=== PATIENT | female | born 1990 | race American Indian/Alaskan Native ===

== ENCOUNTER 2018-11-13 23:34 | Outpatient (CLI) | payer OTHER ==
[2018-11-14] MEDS ORDERED: LACTATED RINGERS 1,000 ML ONE (01:10)
[2018-11-14] MEDS ORDERED: LACTATED RINGERS 1,000 ML IV SCH (02:00)
[2018-11-14] MEDS ORDERED: MORPHINE IV ONE (02:52)
[2018-11-14] MEDS ORDERED: PHENERGAN PO ONE (02:54)
[2018-11-14] MEDS ORDERED: LACTATED RINGERS 0 ML ONE (05:03)
[2018-11-14 05:10] VITALS: BP 107/59
[2018-11-14] MEDS ORDERED: VISTARIL PO ONE ×2 (07:21→08:00)
== END 2018-11-14 08:00 | disposition home or self-care (01) ==
LOC: TRG 23:34
PROVIDERS: ATTEND Obstetrics & Gynecology
DX: O47.03 False labor before 37 completed weeks of gestation, third trimester (principal); O62.4 Hypertonic, incoordinate, and prolonged uterine contractions; Z3A.39 39 weeks gestation of pregnancy
CPT/HCPCS: 59025; 96374; J2270; 96360; 96372; J7120; Q0169; Q0177

== ENCOUNTER 2018-11-14 14:35 | Inpatient (IN) | payer OTHER ==
[2018-11-14] MEDS ORDERED: PITOCin/NS 20 UNIT/1000ML DRIP 20 UNITS/1,000 ML BAG IV SCH (15:00)
[2018-11-14] MEDS ORDERED: SUBLIMAZE IV PRN (15:00)
[2018-11-14] MEDS ORDERED: LACTATED RINGERS 1,000 ML IV SCH (15:00)
[2018-11-14 15:54] LABS: Hematocrit 39.8 % (30.3-42.9); Hemoglobin 13.6 gm/dl (10.1-14.3); Mean Corpuscular HGB Conc 34 % (30-34); Mean Corpuscular Volume 90 fl (79-97); Platelet Count 188 K/mm3 (140-440); Red Cell Distribution Width 13.3 % (13.2-15.2)
--- NOTE | 2018-11-14 17:13 | History and Physical Report ---
History of Present Illness Date of examination: 11/14/18 Date of admission: 11/14/18 14:52 Chief complaint: contractions History of present illness: 27y/o @ 39+3 weeks presents in active labor with advanced cervical dilation of 7cm. The patient's course was complicated by suspected IUGR that resolved. She denies leakage of fluid. GBS status is unknown. Past History Past Medical History: no pertinent history Past Surgical History: no surgical history Social history: - Obstetrical History Expected Date of Delivery: 11/18/18 Actual Gestation: 39 Week(s) 3 Day(s) : 2 Para: 1 Hx # Term Pregnancies: 1 Number of Pregnancies: 0 Spontaneous Abortions: 0 Induced : 0 Number of Living Children: 1 Medications and Allergies Allergies Allergy/AdvReac Type Severity Reaction Status Date / Time soy AdvReac Itching Verified 10/06/18 09:43 Home Medications Medication Instructions Recorded Confirmed Last Taken Type Pnv,Calcium 72/Iron/Folic Acid 1 tab PO QDAY 11/14/18 11/14/18 11/13/18 History [Preplus Ca-Fe 27 mg-FA 1 mg Tb] Active Meds: Active Medications Fentanyl (Sublimaze) 100 mcg IV Q2H PRN PRN Reason: Labor Pain Last Admin: 11/14/18 15:14 Dose: 100 mcg Documented by: Lactated Ringer's (Lactated Ringers) 1,000 mls @ 125 mls/hr IV DIRECT JO Last Admin: 11/14/18 15:14 Dose: 125 mls/hr Documented by: Oxytocin/Sodium Chloride (Pitocin/Ns 20 Unit/1000ml Drip) 20 units in 1,000 mls @ 0 mls/hr IV DIRECT JO Review of Systems All systems: negative Genitourinary: contractions, no leakage of fluid - Vital Signs Vital signs: Vital Signs Temp Resp 98.1 F 18 11/14/18 15:01 11/14/18 15:01 Temp Pulse Resp BP Pulse Ox 98.1 F 96 H 18 114/68 11/14/18 15:01 11/14/18 17:08 11/14/18 15:01 11/14/18 17:08 - Physical Exam Breasts: Positive: deferred Cardiovascular: Regular rate Lungs: Positive: Clear to auscultation Abdomen: Positive: normal appearance Results Result Diagrams: 11/14/18 15:36 Abnormal lab results 11/14/18 Range/Units 15:36 WBC 21.6 H (4.5-11.0) K/mm3 All other labs normal. Assessment and Plan - Patient Problems (1) Active labor at term Current Visit: Yes Status: Acute Plan to address problem: admit to L&D
[2018-11-14] MEDS ORDERED: DULCOLAX PR PRN (17:14)
[2018-11-14] MEDS ORDERED: ZOFRAN IV PRN (17:14)
[2018-11-14] MEDS ORDERED: TUCKS PAD TP PRN (17:14)
[2018-11-14] MEDS ORDERED: BENADRYL PO PRN (17:14)
[2018-11-14] MEDS ORDERED: TYLENOL PO PRN (17:14)
[2018-11-14] MEDS ORDERED: PHENERGAN PO PRN (17:14)
[2018-11-14] MEDS ORDERED: MILK OF MAGNESIA PO PRN (17:14)
[2018-11-14] MEDS ORDERED: LANSINOH TP PRN (17:14)
[2018-11-14] MEDS ORDERED: PHENERGAN PR PRN (17:14)
--- NOTE | 2018-11-14 17:14 | Procedure Note ---
OB Delivery Note - Delivery Date of Delivery: 11/14/18 Surgeon: ALESHA BEY Estimated blood loss: other (400ml) - Vaginal Delivery presentation: vertex Delivery position: OA Intrapartum events: precipitous labor- <3hr Delivery monitor: external FHT Route of delivery: Delivery placenta: spontaneous Delivery cord: 3 umbilical vessels Episiotomy: none Delivery laceration: none Anesthesia: none Delivery comments: Patient had a precipitous delivery of a liveborn male infant with apgars of 8/9 and weight of 6lbs 14oz. The delivery was attended by the nurse who placed the infant on the patient's chest while still attached to the placenta. Patient received delayed cord clamping. The placenta was delivered by the physician spontaneously intact with a 3VC. No lacerations were noted. The patient refused the use of pitocin. EBL 400ml. - A at 1 minute: 8 at 5 minutes: 9 Infant Gender: Male (weight 6lbs 14oz)
[2018-11-14] MEDS ORDERED: SODIUM CHLORIDE FLUSH SYRINGE 10 ML IV NR (18:00)
[2018-11-14] MEDS: IBUPROFEN PO SCH (19:46)
[2018-11-15] MEDS: IBUPROFEN PO SCH ×4 (00:45→18:15)
[2018-11-15] MEDS: NORCO 5/325 PO PRN (03:53)
[2018-11-15 06:41] LABS: Hematocrit 36.4 % (30.3-42.9); Hemoglobin 12.1 gm/dl (10.1-14.3)
--- NOTE | 2018-11-15 07:48 | Progress Note ---
Assessment and Plan A/P PPD1 s/p routine Pospartum care consider d/c home tomorrow Subjective - Subjective Date of service: 11/15/18 Principal diagnosis: s/p Patient reports: appetite normal, voiding normally, pain well controlled, flatus, ambulating normally : doing well Objective - Vital Signs Latest vital signs: Vital Signs Temp Pulse Resp BP BP Pulse Ox 11/15/18 05:26 97.9 F 86 18 109/64 96 11/15/18 03:53 18 11/14/18 23:30 98.5 F 95 H 18 113/70 97 11/14/18 19:46 18 11/14/18 18:40 98.6 F 100 H 18 116/77 97 11/14/18 17:54 98.4 F 18 11/14/18 17:38 96 H 118/65 11/14/18 17:26 87 80 L 11/14/18 17:25 87 98 11/14/18 17:23 89 118/67 11/14/18 17:16 98.7 F 18 11/14/18 17:08 96 H 114/68 11/14/18 17:01 100 H 118/59 11/14/18 15:11 112 H 132/85 11/14/18 15:01 98.1 F 18 Intake and Output 11/14/18 11/14/18 11/15/18 15:59 23:59 07:59 Intake Total 360 Output Total 1300 Balance -1300 360 Intake: Intake, Free Water 360 Output: Urine 1300 Void 1300 Other: Total, Output Amount 900 Weight 81.647 kg Estimated Blood Loss 400 - Exam Breasts: Present: normal Cardiovascular: Present: Regular rate, Normal S1 Lungs: Present: Clear to auscultation, Normal air movement Abdomen: Present: normal appearance, soft, normal bowel sounds. Absent: distention, tenderness, guarding Uterus: Present: normal, firm. Absent: fundal height below umbilicus Extremities: Present: normal Deep Tendon Reflex Grade: Normal +2 Incision: Present: normal - Labs Labs: Abnormal lab results 11/14/18 Range/Units 15:36 WBC 21.6 H (4.5-11.0) K/mm3
[2018-11-16] MEDS: IBUPROFEN PO SCH ×4 (00:25→17:41)
--- NOTE | 2018-11-16 03:21 | Discharge Summary ---
Providers - Providers Date of Admission: 11/14/18 14:52 Date of discharge: 11/16/18 Attending physician: ALESHA BEY Primary care physician: ALESHA BEY Hospitalization Reason for admission: active labor Delivery: Episiotomy: none Laceration: none Incision: normal Other procedures: none Discharge diagnosis: IUP at term delivered baby: male Hospital course: Patient came in active labor. Delivered vaginally and discharged with f/u PPD 2. f/u in 4 weeks Condition at discharge: Good Disposition: DC-01 TO HOME OR SELFCARE Plan - Provider Discharge Summary Activity: routine, no sex for 6 weeks, no strenuous exercise Diet: routine Instructions: routine Additional instructions: [] Smoking cessation referral if applicable(refer to patient education folder for contact #) [] Refer to [facility] Booklet Call your doctor immediately for: * Fever > 100.5 * Heavy vaginal bleeding ( >1 pad per hour) * Severe persistent headache * Shortness of breath * Reddened, hot, painful area to leg or breast * Drainage or odor from incision. * Keep incision clean and dry at all times and follow doctor's instructions regarding bathing/showering - Follow up plan Follow up: ALESHA BEY MD [Primary Care Provider] - 12/14/18
[2018-11-16] MEDS: NORCO 5/325 PO PRN ×2 (06:28→17:42)
[2018-11-16 17:40] VITALS: BP 117/74
== END 2018-11-16 18:55 | disposition home or self-care (01) | DRG 807 ==
LOC: TRG 14:35 → LD 14:52 → OB 18:48
PROVIDERS: ADMIT Obstetrics & Gynecology; ATTEND Obstetrics & Gynecology
PROC: 10E0XZZ Delivery of Products of Conception, External Approach (ICD-10-PCS; principal; 2018-11-14)
DX: O62.3 Precipitate labor (principal); Z37.0 Single live birth; Z3A.39 39 weeks gestation of pregnancy; Z91.018 Allergy to other foods
CPT/HCPCS: 36415; 85014; 85018; 85027; 86592; 86850; 86900; 86901; G0378; A6250; J2590; J3010; J7120

== ENCOUNTER 2019-09-20 09:33 | Emergency (ER) | payer OTHER, MEDICAID ==
[2019-09-20 09:53] VITALS: BP 103/73
[2019-09-20] MEDS ORDERED: IBUPROFEN 800 MG TAB PO ONE (10:22)
--- NOTE | 2019-09-20 11:07 | Emergency Department Report ---
ED Lower Extremity HPI - General Chief Complaint: Extremity Injury, Lower Stated Complaint: LT PAIN Time Seen by Provider: 09/20/19 10:22 Source: patient Mode of arrival: Ambulatory Limitations: No Limitations - History of Present Illness Initial Comments: This is a 28-year-old female nontoxic, well nourished in appearance, no acute signs of distress presents to the ED with c/o of left foot pain 1 day. Patient stated that she has been walking a lot. Patient is uncertain of any trauma or injuries. Patient denies any numbness, tingling, fever, chills, nausea, vomiting, chest pain, shortness of breath, headache, stiff neck. Patient denies any joint swelling or joint redness. Patient denies decreased range of motion. Patient stated has decreased gait due to pain. Patient denies any allergies or significant past medical history. MD Complaint: foot injury -: days(s) (1) Injury: Foot: Left Place: street/outdoors Severity: mild Severity scale (0 -10): 8 Improves With: immobilization Worsens With: weight bearing, movement, palpation Associated Symptoms: able to partially bear weight, ambulatory. denies: snap/pop sensation, swelling, numbness, tingling, unable to bear weight - Related Data Home Medications Medication Instructions Recorded Confirmed Last Taken Pnv,Calcium 72/Iron/Folic Acid 1 tab PO QDAY 11/14/18 11/14/18 11/13/18 [Preplus Ca-Fe 27 mg-FA 1 mg Tb] Previous Rx's Medication Instructions Recorded Last Taken Type cephALEXin [Keflex] 1,000 mg PO Q12HR #20 cap 06/28/19 Unknown Rx Naproxen 500 mg PO Q12H PRN #20 tablet 09/20/19 Unknown Rx Allergies Allergy/AdvReac Type Severity Reaction Status Date / Time soy AdvReac Itching Verified 10/06/18 09:43 ED Review of Systems ROS: Stated complaint: LT PAIN Other details as noted in HPI Constitutional: denies: chills, fever Eyes: denies: eye pain, eye discharge, vision change ENT: denies: ear pain, throat pain Respiratory: denies: cough, shortness of breath, wheezing Cardiovascular: denies: chest pain, palpitations Endocrine: no symptoms reported Gastrointestinal: denies: abdominal pain, nausea, diarrhea Genitourinary: denies: urgency, dysuria, discharge Musculoskeletal: denies: back pain, joint swelling, arthralgia Skin: denies: rash, lesions Neurological: denies: headache, weakness, paresthesias Psychiatric: denies: anxiety, depression Hematological/Lymphatic: denies: easy bleeding, easy bruising ED Past Medical Hx - Past Medical History Previous Medical History?: No Hx Hypertension: No Hx Congestive Heart Failure: No Hx Diabetes: No Hx Deep Vein Thrombosis: No Hx Renal Disease: No Hx Sickle Cell Disease: No Hx Seizures: No Hx Asthma: No Hx COPD: No Hx HIV: No - Surgical History Past Surgical History?: No - Social History Smoking Status: Never Smoker Substance Use Type: None - Medications Home Medications: Home Medications Medication Instructions Recorded Confirmed Last Taken Type Pnv,Calcium 72/Iron/Folic Acid 1 tab PO QDAY 11/14/18 11/14/18 11/13/18 History [Preplus Ca-Fe 27 mg-FA 1 mg Tb] cephALEXin [Keflex] 1,000 mg PO Q12HR #20 cap 06/28/19 Unknown Rx Naproxen 500 mg PO Q12H PRN #20 tablet 09/20/19 Unknown Rx ED Physical Exam - General Limitations: No Limitations General appearance: alert, in no apparent distress - Head Head exam: Present: atraumatic, normocephalic - Neck Neck exam: Present: normal inspection, full ROM. Absent: tenderness, meningismus, lymphadenopathy - Extremities Exam Extremities exam: Present: normal inspection, full ROM, tenderness, normal capillary refill. Absent: joint swelling, calf tenderness - Expanded Lower Extremity Exam Left Hip exam: Present: normal inspection, full ROM. Absent: tenderness, swelling Upper Leg exam: Present: normal inspection, full ROM. Absent: tenderness, swelling Knee exam: Present: normal inspection, full ROM. Absent: tenderness, swelling Lower Leg exam: Present: normal inspection, full ROM. Absent: tenderness, swelling Ankle exam: Present: normal inspection, full ROM. Absent: tenderness, swelling Foot/Toe exam: Present: normal inspection, full ROM, tenderness. Absent: swelling, abrasion, laceration, ecchymosis, deformity, crepidus, dislocation, erythema, amputation, puncture wound, foreign body, calcaneal tenderness, tenderness at base of 5th metatarsal, nail avulsion, subungual hematoma Neuro vascular tendon exam: Present: no vascular compromise Gait: Positive: observed and limited by pain - Back Exam Back exam: Present: normal inspection, full ROM - Neurological Exam Neurological exam: Present: alert, oriented X3, normal gait - Psychiatric Psychiatric exam: Present: normal affect, normal mood - Skin Skin exam: Present: warm, dry, intact, normal color. Absent: rash ED Course Vital Signs 09/20/19 09:50 Temperature 97.8 F Pulse Rate 70 Respiratory 18 Rate Blood Pressure 103/73 O2 Sat by Pulse 99 Oximetry - Reevaluation(s) Reevaluation #1: 09/20/19 11:05 Patient is speaking in full sentences with no signs of distress noted. ED Lower Extremity MDM - Medical Decision Making This is a 28-year-old female that presents with left foot strain. Patient is stable and was examined by me. I referred patient to an orthopedic doctor for further evaluation for possible MRI. X-ray has been obtained and dictated by the radiologist. Patient is notified of the x-ray report with noted by the patient. Patient does have normal gait with no tenderness and no joint swelling. No ecchymosis. no joint redness or swelling. Not warm to touch. No signs of cellulites present. Patient was instructed to RICE therapy. Patient received Motrin for pain. Patient is discharged with Motrin. At time of di scharge, the patient does not seem toxic or ill in appearance. No acute signs of distress noted. Patient agrees to discharge treatment plan of care. No further questions noted by the patient. Critical care attestation.: If time is entered above; I have spent that time in minutes in the direct care of this critically ill patient, excluding procedure time. ED Disposition Clinical Impression: Strain of left foot Qualifiers: Encounter type: initial encounter Qualified Code(s): S96.912A - Strain of unspecified muscle and tendon at ankle and foot level, left foot, initial encounter Disposition: - TO HOME OR SELFCARE Is pt being admited?: No Does the pt Need Aspirin: No Condition: Stable Instructions: RICE Therapy (ED) Additional Instructions: Follow-up with a orthopedic doctor in 3-5 days or if symptoms worsen and continue return to emergency room as soon as possible. Prescriptions: Naproxen 500 mg PO Q12H PRN #20 tablet PRN Reason: Pain, Moderate (4-6) Referrals: PRIMARY CARE, [Referring] - 3-5 Days MADHURI MUNOZ MD [Staff Physician] - 3-5 Days [facility] [Outside] - 3-5 Days
--- NOTE | 2019-09-20 11:29 | XRay Report ---
Left foot-3 views INDICATION: foot pain. COMPARISON: None. IMPRESSION: No acute osseous or soft tissue abnormality. No significant DJD. Signer Name: Mickey Burroughs MD Signed: 09/20/2019 11:25 AM Workstation Name: [id number]
== END 2019-09-20 11:45 | disposition home or self-care (01) ==
LOC: ED 09:33
DX: S96.912A Strain of unspecified muscle and tendon at ankle and foot level, left foot, initial encounter (principal); X58.XXXA Exposure to other specified factors, initial encounter; Y93.89 Activity, other specified; Y92.89 Other specified places as the place of occurrence of the external cause; Y99.8 Other external cause status
CPT/HCPCS: 99283

== ENCOUNTER 2020-10-04 01:39 | Inpatient (IN) | payer MEDICAID ==
[2020-10-04] MEDS ORDERED: ePHEDrine SULFATE 50 MG/1 ML INJ IV PRN (03:42)
[2020-10-04] MEDS ORDERED: BUTORPHANOL 2 MG/1 ML INJ IV PRN (03:42)
[2020-10-04] MEDS ORDERED: LIDOCAINE (2%) 20 MG/1 ML VIAL 20 ML MDV INFILTRATI ONE (03:42)
[2020-10-04] MEDS ORDERED: fentaNYL 100 MCG/2 ML INJ IV PRN (03:42)
[2020-10-04] MEDS ORDERED: ONDANSETRON 4 MG/2 ML INJ IV PRN ×2 (03:42→05:19)
[2020-10-04] MEDS ORDERED: MINERAL OIL 30 ML ORAL LIQD PO PRN (03:42)
[2020-10-04] MEDS ORDERED: TERBUTALINE 1 MG/1 ML INJ SUB-Q PRN (03:42)
[2020-10-04] MEDS ORDERED: LACTATED RINGERS 1,000 ML IV SCH (03:45)
[2020-10-04 04:11] LABS: Hemoglobin 13.1 gm/dl (10.1-14.3)
[2020-10-04 04:17] LABS: Hematocrit 37.7 % (30.3-42.9); Mean Corpuscular HGB Conc 35 % (30-34); Mean Corpuscular Volume 89 fl (79-97); Platelet Count 213 K/mm3 (140-440); Red Blood Count 4.23 M/mm3 (3.65-5.03); Red Cell Distribution Width 14.5 % (13.2-15.2)
--- NOTE | 2020-10-04 05:17 | History and Physical Report ---
History of Present Illness Date of examination: 10/04/20 Date of admission: 10/04/20 03:42 Chief complaint: Leakage of fluid and contractions History of present illness: 29-year-old -0-02 39.0 weeks who presents in active labor with spontaneous rupture membranes with findings of light meconium stained fluid. The patient had rapid progression while being observed in triage. She reports that her GBS status is negative. Past History Past Medical History: no pertinent history Past Surgical History: no surgical history Social history: - Obstetrical History Expected Date of Delivery: 10/11/20 Actual Gestation: 39 Week(s) 0 Day(s) : 3 Para: 2 Hx # Term Pregnancies: 2 Number of Pregnancies: 0 Spontaneous Abortions: 0 Induced : 0 Number of Living Children: 2 Medications and Allergies Allergies Allergy/AdvReac Type Severity Reaction Status Date / Time soy AdvReac Itching Verified 10/06/18 09:43 Home Medications Medication Instructions Recorded Confirmed Last Taken Type Pnv,Calcium 72/Iron/Folic Acid 1 tab PO QDAY 11/14/18 11/14/18 11/13/18 History [Preplus Ca-Fe 27 mg-FA 1 mg Tb] cephALEXin [Keflex] 1,000 mg PO Q12HR #20 cap 06/28/19 Unknown Rx Naproxen 500 mg PO Q12H PRN #20 tablet 09/20/19 Unknown Rx Active Meds: Active Medications Butorphanol Tartrate (Butorphanol 2 Mg/1 Ml Inj) 2 mg IV Q2H PRN PRN Reason: Pain , Severe (7-10) Ephedrine Sulfate (Ephedrine Sulfate 50 Mg/1 Ml Inj) 10 mg IV Q2M PRN PRN Reason: Hypotension Fentanyl (Fentanyl 100 Mcg/2 Ml Inj) 100 mcg IV Q2H PRN PRN Reason: Pain,Severe (7-10) LABOR PAIN Lactated Ringer's (Lactated Ringers) 1,000 mls @ 125 mls/hr IV DIRECT JO Last Admin: 10/04/20 04:12 Dose: 125 mls/hr Documented by: Oxytocin/Sodium Chloride (Pitocin/Ns 30 Unit/500ml) 30 units in 500 mls @ 40 mls/hr IV TITR JO; Protocol Mineral Oil (Mineral Oil 30 Ml Oral Liqd) 30 ml PO QHS PRN PRN Reason: Constipation Ondansetron HCl (Ondansetron 4 Mg/2 Ml Inj) 4 mg IV Q8H PRN PRN Reason: Nausea And Vomiting Terbutaline Sulfate (Terbutaline 1 Mg/1 Ml Inj) 0.25 mg SUB-Q ONCE PRN PRN Reason: Hyperstimulation/Hypertonicity Review of Systems All systems: negative Genitourinary: leakage of fluid, contractions - Vital Signs Vital signs: Vital Signs Pulse Resp BP Pulse Ox 80 18 132/80 99 10/04/20 02:04 10/04/20 02:04 10/04/20 02:04 10/04/20 02:04 Temp Pulse Resp BP Pulse Ox 98.2 F 84 18 128/76 100 10/04/20 05:03 10/04/20 05:10 10/04/20 05:03 10/04/20 05:03 10/04/20 05:10 - Physical Exam Breasts: Positive: deferred Cardiovascular: Regular rate Lungs: Positive: Clear to auscultation Abdomen: Positive: normal appearance Results Result Diagrams: 10/04/20 03:54 Abnormal lab results 10/04/20 Range/Units 03:54 WBC 14.5 H (4.5-11.0) K/mm3 MCHC 35 H (30-34) % All other labs normal. Assessment and Plan - Patient Problems (1) Active labor at term Current Visit: No Status: Acute Plan to address problem: Admit to labor and delivery
[2020-10-04] MEDS ORDERED: PROMETHAZINE 25 MG RECT SUPP PR PRN (05:19)
[2020-10-04] MEDS ORDERED: LANOLIN/ZINC/DIMETHICONE (LANSINOH) 7 GM TP PRN (05:19)
[2020-10-04] MEDS ORDERED: MAGNESIUM HYDROXIDE (MOM) ORAL LIQD UDC PO PRN (05:19)
[2020-10-04] MEDS ORDERED: PROMETHAZINE 25 MG TAB PO PRN (05:19)
[2020-10-04] MEDS ORDERED: ACETAMINOPHEN 325 MG TAB PO PRN (05:19)
[2020-10-04] MEDS ORDERED: WITCH HAZEL/ GLYCERIN PAD TP PRN (05:19)
[2020-10-04] MEDS ORDERED: HYDROcodone/ACETAMINOPHEN 5-325 MG TAB PO PRN (05:19)
[2020-10-04] MEDS ORDERED: diphenhydrAMINE 25 MG CAP PO PRN (05:19)
--- NOTE | 2020-10-04 05:19 | Procedure Note ---
OB Delivery Note - Delivery Date of Delivery: 10/04/20 Surgeon: ALESHA BEY Estimated blood loss: 300cc - Vaginal Delivery presentation: vertex Delivery position: OA Intrapartum events: precipitous labor- <3hr Delivery monitor: external FHT, external uterine Route of delivery: Delivery placenta: spontaneous Delivery cord: nuchal cord, 3 umbilical vessels Episiotomy: none Delivery laceration: none Anesthesia: none Delivery comments: The patient had a precipitous delivery of a liveborn male with Apgars of 8 and 9 weight 7 pounds 4 ounces.The patient had spontaneous rupture of membranes and rapidly progressed. The delivery was attended by the nursing staff. A nuchal cord was manually reduced. The placenta delivered spontaneously intact with 3VC. No lacerations noted. EBL 300ml - Infant A at 1 minute: 8 at 5 minutes: 9 Infant Gender: Male (Weight 7 pounds 4 ounces)
[2020-10-04] MEDS: OXYTOCIN DRIP 30 UNITS/500 ML BAG IV SCH ×2 (05:39→06:49)
[2020-10-04] MEDS: IBUPROFEN 600 MG TAB PO SCH ×3 (13:00→22:34)
[2020-10-04 15:03] LABS: Hematocrit 32.9 % (30.3-42.9); Hemoglobin 11.2 gm/dl (10.1-14.3); Mean Corpuscular HGB Conc 34 % (30-34); Mean Corpuscular Volume 89 fl (79-97); Platelet Count 183 K/mm3 (140-440); Red Cell Distribution Width 14.1 % (13.2-15.2)
[2020-10-05] MEDS: IBUPROFEN 600 MG TAB PO SCH (06:03)
--- NOTE | 2020-10-05 08:35 | Progress Note ---
Assessment and Plan A: PPD1 s/p Vital signs and labs stable. Mildly elevated WBC, asymptomatic for infection P: Routine care Discharge to home today Subjective - Subjective Date of service: 10/05/20 Principal diagnosis: s/p Interval history: PPD1 s/p Patient reports: appetite normal, voiding normally, pain well controlled, ambulating normally : doing well, nursing well Objective - Vital Signs Latest vital signs: Vital Signs Temp Pulse Resp BP BP Pulse Ox 10/05/20 01:00 97.8 F 83 20 125/77 99 10/04/20 16:18 98.4 F 82 18 104/63 98 10/04/20 12:28 98.0 F 74 18 107/67 97 10/04/20 08:42 98.4 F 74 19 116/81 97 Intake and Output 10/04/20 10/05/20 10/05/20 23:59 07:59 15:59 Intake Total 1320 120 Output Total 700 Balance 620 120 Intake: Oral 600 120 Intake, Free Water 720 Output: Urine 700 Void 700 Other: Total, Intake Amount 240 120 Total, Output Amount 700 # Voids Void 2 1 - Exam Abdomen: Present: soft. Absent: distention Uterus: Present: firm, fundal height below umbilicus. Absent: bogginess - Labs Labs: Abnormal lab results 10/04/20 Range/Units 13:56 WBC 15.5 H (4.5-11.0) K/mm3
--- NOTE | 2020-10-05 08:38 | Discharge Summary ---
Providers - Providers Date of Admission: 10/04/20 03:42 Date of discharge: 10/05/20 Attending physician: ALESHA BEY Primary care physician: ALESHA BEY Hospitalization Reason for admission: active labor, IUP at term Delivery: Other procedures: none complications: none Discharge diagnosis: IUP at term delivered Condition at discharge: Good Disposition: DC-01 TO HOME OR SELFCARE Plan - Discharge Medications Prescriptions: Ibuprofen [Motrin] 600 mg PO Q6H PRN #60 tablet PRN Reason: Pain - Provider Discharge Summary Activity: routine, no sex for 6 weeks, no heavy lifting 4 weeks, no strenuous exercise Diet: routine Instructions: routine Additional instructions: [] Smoking cessation referral if applicable(refer to patient education folder for contact #) [] Refer to [facility] Booklet Call your doctor immediately for: * Fever > 100.5 * Heavy vaginal bleeding ( >1 pad per hour) * Severe persistent headache * Shortness of breath * Reddened, hot, painful area to leg or breast * Drainage or odor from incision. * Keep incision clean and dry at all times and follow doctor's instructions regarding bathing/showering - Follow up plan Follow up: THERESE VICKERS CNM [Advanced Practice Nurse] - 14 Days (Please call office to schedule appointment)
[2020-10-05 14:05] VITALS: BP 109/62
== END 2020-10-05 15:10 | disposition home or self-care (01) | DRG 775 ==
LOC: TRG 01:39 → APU 01:41 → LD 03:42 → TRG 03:42 → OB 08:18
PROVIDERS: ADMIT Obstetrics & Gynecology; ATTEND Obstetrics & Gynecology
PROC: 10E0XZZ Delivery of Products of Conception, External Approach (ICD-10-PCS; principal; 2020-10-04)
DX: O62.3 Precipitate labor (principal); O77.0 Labor and delivery complicated by meconium in amniotic fluid; Z37.0 Single live birth; Z20.828 Contact with and (suspected) exposure to other viral communicable diseases; Z3A.39 39 weeks gestation of pregnancy; Z79.899 Other long term (current) drug therapy; Z91.018 Allergy to other foods
CPT/HCPCS: 36415; 85027; 86592; 86850; 86900; 86901; G0378; J2590; J7120; Q0169; U0003